=== PATIENT | female | born 1980 | race Caucasian/White ===

== ENCOUNTER 2021-12-25 21:41 | Emergency (ER) | payer OTHER ==
[~2021-12-25] VITALS: Ht 167.6 cm; Wt 62.6 kg
--- NOTE | 2021-12-25 22:11 | NUR ---
COVID SWAB AND FLU COLLECTED AND SENT TO LAB
[2021-12-25 22:19] VITALS: BP 124/71
[2021-12-25] MEDS ORDERED: LORAZEPAM 0.5 MG TABLET ONE (22:24)
[2021-12-25] MEDS ORDERED: LORAZEPAM 1 MG TABLET PO ONE (22:30)
--- NOTE | 2021-12-25 22:31 | NUR ---
PATIENT REFUSED MEDS. RISK AND BENEFITS EXPLAINED X 2.
--- NOTE | 2021-12-25 22:48 | NUR ---
Patient eloped from facility. ER MD notified.
== END 2021-12-25 22:55 | disposition left against medical advice (07) ==
LOC: ER 21:51
DX: R09.81 Nasal congestion (principal); Z20.822 Contact with and (suspected) exposure to COVID-19; R00.0 Tachycardia, unspecified; Z86.79 Personal history of other diseases of the circulatory system
CPT/HCPCS: 71046; 87426; 87804; 93005; 99285; C9803